=== PATIENT | male | born 1955 | race Caucasian/White ===

== ENCOUNTER → 2016-10-17 | Outpatient (REF) | payer BC ==
[2016-10-17 11:45] LABS: BASOPHILS % (AUTO) 1 % (0-2); EOSINOPHILS # (AUTO) 0.1 10^3uL; EOSINOPHILS % (AUTO) 1 % (0-4); LYMPHOCYTES # (AUTO) 0.8 X10^3; MEAN CORPUSCULAR HEMOGLOBIN 30.2 PG (26.0-34.0); MEAN CORPUSCULAR HGB CONC 33.7 g/dL (31.0-37.0); MEAN CORPUSCULAR VOLUME 90 FL (80-100); MEAN PLATELET VOLUME 10.2 FL (6.0-9.5); MONOCYTES # (AUTO) 0.6 X10^3; MONOCYTES % (AUTO) 9 % (3-11); NEUTROPHILS # (AUTO) 5.1 X10^3; NEUTROPHILS % (AUTO) 77 % (51-67); PLATELET COUNT 218 10^3uL (150-450); WHITE BLOOD COUNT 6.59 10^3uL (4.0-11.0)
[2016-10-17 11:52] LABS: ALBUMIN 4.5 g/dL (3.4-5.0); ALKALINE PHOSPHATASE 72 U/L (38-126); ANION GAP 13.9 MEQ/L (3-15); BUN/CREATININE RATIO 23 (10-20); CALCULATED IONIZED CALCIUM 4.4 mg/dL (3.8-4.6)
== END ==
LOC: LAB 11:26
PROVIDERS: ATTEND Family Medicine
DX: Z00.00 Encounter for general adult medical examination without abnormal findings (principal); Z13.0 Encounter for screening for diseases of the blood and blood-forming organs and certain disorders involving the immune mechanism; E78.4 Other hyperlipidemia; E06.3 Autoimmune thyroiditis; Z12.5 Encounter for screening for malignant neoplasm of prostate; E21.2 Other hyperparathyroidism; D35.1 Benign neoplasm of parathyroid gland
CPT/HCPCS: 80053; 80061; 83970; 84153; 84443; 85025

== ENCOUNTER → 2016-10-19 | Outpatient (CLI) | payer BC | LOC: RAD 12:50 | PROVIDERS: ATTEND Family Medicine | DX: M25.862 Other specified joint disorders, left knee (principal); M17.12 Unilateral primary osteoarthritis, left knee | CPT/HCPCS: 73564 ==